=== PATIENT | female | born 1945 | race Asian ===

== ENCOUNTER 2017-02-26 19:49 | Emergency (ER) | payer MEDICARE, MEDICAID ==
[~2017-02-26] VITALS: Ht 162.6 cm; Wt 56.8 kg
[2017-02-26] MEDS ORDERED: METF500T4 PO (19:56)
[2017-02-26] MEDS ORDERED: SITA50 PO (19:56)
[2017-02-26 20:02] LABS: GLUCOSE,POINT OF CARE 161 MG/DL (70-110)
[2017-02-26 21:11] LABS: BASOPHILS % (AUTO) 0.6 % (0.0-2.0); EOSINOPHILS % (AUTO) 2.4 % (1.0-6.0); HEMATOCRIT 39.3 % (36-46); HEMOGLOBIN 12.4 g/dL (12.0-16.0); MEAN CORPUSCULAR HEMOGLOBIN 30.1 pg (26.0-34.0); MEAN CORPUSCULAR HGB CONC 31.6 G/dL (31.0-37.0); MEAN CORPUSCULAR VOLUME 95 fL (80-100); MONOCYTES # (AUTO) 0.5 K/uL (0.1-1.0); MONOCYTES % (AUTO) 7.7 % (2.0-9.0); NEUTROPHILS # (AUTO) 2.8 K/uL (1.8-7.7); NEUTROPHILS % (AUTO) 43.3 % (40.0-70.0); PLATELET COUNT (AUTO) 119 K/uL (150-450); RED BLOOD CELL COUNT(AUTO) 4.13 MIL/uL (4.00-5.20); RED CELL DISTRIBUTION WIDTH 14.4 % (11.5-14.5); WHITE BLOOD COUNT (AUTO) 6.6 K/uL (4.5-11.0)
[2017-02-26 21:19] LABS: CALCIUM, TOTAL 8.7 mg/dL (8.8-10.5); CREATININE 0.98 mg/dL (0.60-1.30); POTASSIUM 4.1 mmol/L (3.5-5.1)
[2017-02-26 21:26] LABS: ALBUMIN 3.5 g/dL (3.4-5.0); BILIRUBIN,TOTAL 0.2 mg/dL (0.1-1.0); TOTAL PROTEIN, SERUM 6.7 g/dL (6.4-8.2)
[2017-02-26] MEDS ORDERED: KETOROLAC TROMETHAMINE 60 MG/2 ML VIAL IM ONE (22:15)
[2017-02-26] MEDS ORDERED: ACETAMINOPHEN/CODEINE 300-30 MG TABLET PO ONE (22:15)
[2017-02-27 00:37] VITALS: BP 126/63
== END 2017-02-27 00:41 | disposition home or self-care (01) ==
LOC: EMS 19:52
DX: M25.552 Pain in left hip (principal); E11.9 Type 2 diabetes mellitus without complications
CPT/HCPCS: 36415; 73503; 73562; 80053; 81002; 82962; 85025; 96372; 99285; J1885